=== PATIENT | female | born 1955 | race Caucasian/White ===

== ENCOUNTER → 2018-12-14 12:43 | Outpatient (CLI) | payer MEDICARE ==
[2018-12-15 07:14] LABS: IMMUNOGLOBULIN A 207 mg/dL (87-352); IMMUNOGLOBULIN G 864 mg/dL (700-1600); IMMUNOGLOBULIN M 37 mg/dL (26-217)
[2018-12-18 10:08] LABS: IMMUNOGLOBULIN E 115 IU/mL (6-495)
== END | disposition home or self-care (01) ==
LOC: D.RAD 03:30 → D.LAB 12:43 → D.RT 15:00
PROVIDERS: ATTEND Internal Medicine Pulmonary Disease
DX: J44.9 Chronic obstructive pulmonary disease, unspecified (principal)

== ENCOUNTER → 2019-10-17 11:37 | Outpatient (CLI) | payer MEDICARE | END | disposition home or self-care (01) | LOC: D.RAD 11:37 | PROVIDERS: ATTEND Family Medicine | DX: M54.2 Cervicalgia (principal) ==